=== PATIENT | female | born 1980 | race Caucasian/White ===

== ENCOUNTER 2017-09-13 11:00 | Emergency (ER) | payer OTHER ==
[~2017-09-13] VITALS: Ht 139.7 cm; Wt 71.7 kg
[~2017-09-13 11:00] MED LIST: POLYMYXIN B-TMP10 ML OD
[2017-09-13] MEDS ORDERED: MINOCYCLINE HC100 MG PO (11:40)
[2017-09-13] MEDS ORDERED: GABAPENTIN300 MG PO (11:40)
[2017-09-13] MEDS ORDERED: FLUOXETINE HCL40 MG (11:40)
[2017-09-13] MEDS ORDERED: DOK250 MG PO (11:41)
[2017-09-13] MEDS ORDERED: NORCO 5-325 TA1 EACH PO (13:04)
== END 2017-09-13 13:35 | disposition home or self-care (01) ==
LOC: ED 11:00
DX: S92.341A Displaced fracture of fourth metatarsal bone, right foot, initial encounter for closed fracture (principal); S92.331A Displaced fracture of third metatarsal bone, right foot, initial encounter for closed fracture; S92.324A Nondisplaced fracture of second metatarsal bone, right foot, initial encounter for closed fracture; F41.9 Anxiety disorder, unspecified; F32.9 Major depressive disorder, single episode, unspecified; Z88.0 Allergy status to penicillin; Z88.2 Allergy status to sulfonamides; Z88.1 Allergy status to other antibiotic agents; Z79.899 Other long term (current) drug therapy; W01.0XXA Fall on same level from slipping, tripping and stumbling without subsequent striking against object, initial encounter
CPT/HCPCS: 73630; 73700; 99284

== ENCOUNTER 2021-08-23 12:27 | Emergency (ER) | payer MEDICARE, OTHER ==
[~2021-08-23] VITALS: Ht 139.7 cm; Wt 93.1 kg
[~2021-08-23 12:27] MED LIST changes: +DOK250 MG PO; +FLUOXETINE HCL40 MG; +GABAPENTIN300 MG PO; +MINOCYCLINE HC100 MG PO; +NORCO 5-325 TA1 EACH PO
--- OUTSIDE RECORDS SUMMARY | 2021-08-23 12:30 | XMS ---
PreManage Notification: RAMBO MCCABE Security Skiver Machine Events No recent Security Events currently on file CRITERIA MET - [facility] - [facility] - Has Care Guidelines CARE PROVIDERS There are no care providers on record at this time. Guidelines Source: [employer] [facility] [place] Guidelines Date: 03/28/2020 Care Coordination: Member is currently enrolled in Mental Health Services through [employer]. If services are needed through [employer] please call: Dmitry [phone] [place]; [phone] Crisis [phone] E.D. VISIT COUNT (12 MO[address] 1 [facility] TOTAL 1 NOTE: Visits indicate total known visits. ED/UCC VISIT TRACKING (12 MO.) 08/23/2021 12:28 [facility] [place] TYPE: Emergency COMPLAINT: - LT EYE IRRITATION INPATIENT VISIT TRACKING (12 MO.) No inpatient visits to display in this time frame [email or web address]
[2021-08-23] MEDS ORDERED: DIVALPROEX SOD125 MG PO (13:27)
[2021-08-23] MEDS ORDERED: PRED FORTE5 ML OP (13:28)
[2021-08-23] MEDS ORDERED: PSEUDOEPHEDRINE30 MG PO (13:28)
[2021-08-23] MEDS ORDERED: PEG3350510 GM PO (13:28)
[2021-08-23] MEDS ORDERED: ACETIC ACID15 ML OTIC (13:28)
== END 2021-08-23 15:15 | disposition home or self-care (01) ==
LOC: ED 12:27
DX: H57.89 Other specified disorders of eye and adnexa (principal); Z88.0 Allergy status to penicillin; Z88.2 Allergy status to sulfonamides; Z88.1 Allergy status to other antibiotic agents; Z79.52 Long term (current) use of systemic steroids; Z79.899 Other long term (current) drug therapy
CPT/HCPCS: 99283

== ENCOUNTER 2021-08-31 20:57 | Emergency (ER) | payer MEDICARE, OTHER ==
[~2021-08-31] VITALS: Ht 139.7 cm; Wt 92.7 kg
[~2021-08-31 20:57] MED LIST changes: +ACETIC ACID15 ML OTIC; +DIVALPROEX SOD125 MG PO; +PEG3350510 GM PO; +PRED FORTE5 ML OP; +PSEUDOEPHEDRINE30 MG PO
--- OUTSIDE RECORDS SUMMARY | 2021-08-31 21:00 | XMS ---
PreManage Notification: RAMBO MCCABE Security Electrical Maintenance Mechanic Events No recent Security Events currently on file CRITERIA MET - [facility] - 2 Visits in 30 Days - PDMP - [facility] - Has Care Guidelines CARE PROVIDERS THU ELIZABETH [facility] 08/26/2021-Current PHONE: [phone] Guidelines Source: [facility] Guidelines Date: 08/29/2021 Other Information: Patient brought to ER by laborer hide house at [employer]. I advised that patient should have a follow up with either PCP or assessment manager and to be seen by walk in if possible for medical treatment. Ros at [facility] [place] stated patient had recent corneal repair, hence the need for an ED visit. She is scheduled to see Dr. Dillard, Tubular Products Fabricator, at [facility] for follow up, as well as with PCP Dr. Elizabeth (to be scheduled). Additional care guidelines exist for the following facilities: [facility] ( 03/28/2020 ) Care History Medical/Surgical 08/26/2021 [facility] - Patient is currently established with [facility]. If patient is seen in the ED during business hours. Please contact CHWs at [facility]. Care Recommendation: If this patient has had 5 or more Emergency Department visits in the last 12 months.\T\nbsp; Patient will require education on the scope and purpose of the ED as an acute care provider not a Primary Care Provider and should not be utilized for chronic conditions.\T\nbsp; These are guidelines and the provider should exercise clinical judgment when providing care. E.D. VISIT COUNT (12 MO.) 2 [facility] TOTAL 2 NOTE: Visits indicate total known visits. ED/UCC VISIT TRACKING (12 MO.) 08/31/2021 20:58 [facility] [place] TYPE: Emergency COMPLAINT: - BILATE LOWER LEG SWELLING 08/23/2021 12:[address] [facility] [place] TYPE: Emergency COMPLAINT: - LT EYE IRRITATION DIAGNOSES: - Ocular pain, left eye - Allergy status to penicillin - Allergy status to sulfonamides - Other oil heaterman (current) drug therapy - Allergy status to other antibiotic agents - snf (current) use of systemic steroids - Other specified disorders of eye and adnexa INPATIENT VISIT TRACKING (12 MO.) No inpatient visits to display in this time frame [email or web address]
[2021-08-31] MEDS ORDERED: DOXYCYCLINE HY100 MG PO (22:40)
[2021-08-31] MEDS ORDERED: MINOCYCLINE HC100 MG PO (22:46)
[2021-08-31] MEDS ORDERED: VITAMIN D325 MC2 PO (22:48)
[2021-08-31] MEDS ORDERED: ACETAMINOPHEN500 MG PO (22:51)
[2021-08-31] MEDS ORDERED: DIPHENHYDRAMINE25 M1 PO (22:51)
[2021-08-31] MEDS ORDERED: ROBITUSSIN COU237 M2 PO (22:53)
[2021-08-31] MEDS ORDERED: ADVIL200 MG NG (22:54)
== END 2021-08-31 23:13 | disposition home or self-care (01) ==
LOC: ED 20:57
DX: L03.116 Cellulitis of left lower limb (principal); L03.115 Cellulitis of right lower limb; Z88.0 Allergy status to penicillin; Z88.2 Allergy status to sulfonamides; Z88.1 Allergy status to other antibiotic agents; Z79.899 Other long term (current) drug therapy; Z79.52 Long term (current) use of systemic steroids
CPT/HCPCS: 80053; 85025; 99283

== ENCOUNTER 2022-01-10 05:45 | Day surgery (SDC) | payer MEDICARE, OTHER ==
[~2022-01-10 05:45] MED LIST changes: +ACETAMINOPHEN500 MG PO; +ADVIL200 MG NG; +DIPHENHYDRAMINE25 M1 PO; +DOXYCYCLINE HY100 MG PO; +ROBITUSSIN COU237 M2 PO; +VITAMIN D325 MC2 PO
--- NOTE | 2022-01-10 10:22 | NUR ---
01/10/22 1022 Felicity Cates 1017- PT ARRIVES TO PACU NONAROUSABLE TO NOXIOUS STIMULI WITH AN OPA IN PLACE. RESP EVEN AND UNLABORED. OXYGEN SAT HIGH 90'S TO 100% ON 10L VIA MASK. 1020- PT PUSHING OPA OUT WITH HER TONGUE. OPA REMOVED. OXYGEN SAT HIGH 90'S TO 100% ON 10L VIA MASK. 1021- OXYGEN TITRATED DOWN TO 6L VIA MASK.
--- NOTE | 2022-01-10 10:31 | NUR ---
PT TAKEN TO OR, CONNECTED WITH CG. SHE NEEDST LEAVE TO SPORTS EDITOR OTHER CLIENTS APPARENTLY, WILL RETURN. INSTRUCTED HER TO LEAVE CONTACT INFO WITH CONTROL CLERK SUBASSEMBLY-SHE ACKNOWLEDGED. WILL FOLLOW
[2022-01-10] MEDS ORDERED: HYDROCODON-ACE1 EA10 PO (10:44)
[2022-01-10] MEDS ORDERED: ACETAMINOPHEN500 MG PO (10:44)
--- NOTE | 2022-01-10 11:20 | NUR ---
PATIENT BACK TO ROOM FROM PACU. REPORT RECEIVED FROM XUAN GUERRA. PATIENT IS AWAKE AND WATCHING TV. NODS HER HEAD NO WHEN ASKED ABOUT PAIN. 4 LAP SITES WITH SMALL AMOUNT OF RED DRAINAGE. 35ML OF DRAINAGE REMOVED FROM GUILLERMINA DRAIN. ABD PAD UNDER DRAIN SATURGATED WITH DRAINAGE. REMOVED OLD DRESSING AND REPLACED WITH NEW ABD AND TAPE. CHUX'S PAD UNDER PATIENT SATURATED WITH DRAINAGE. NEW PAD PLACED. CAREGIVER AT BEDSIDE. ALAINA HUGGER TURNED ON. WATER AND PUDDING PROVIDED FOR PATIENT. CALL LIGHT WITHIN REACH.
--- NOTE | 2022-01-10 11:45 | NUR ---
PATIENT UP TO BATHROOM WITH RN AND CAREGIVER. GAIT UNSTEADY, TOLERATED WELL. PATIENT VOIDED 650ML. PATIENT BACK TO ROOM. CHANGED BED AND PUT NEW CHUX PAD DOWN. CHANGED PATIENT DRESSING AROUND AND UNDER THE GUILLERMINA DRAIN. NEW GOWN PROVIDED.
--- NOTE | 2022-01-10 12:10 | NUR ---
1210-PATIENT SHAKES HER HEAD YES TO PAIN AND POINTS AND RUBS HER RUQ. PAIN MEDICATION GIVEN PER EMAR. 1215-PATIENT IS RESTING IN BED WATCHING TV. RESP EVEN AND UNLABORED. 4 LAP SITES HAVE SMALL AMOUNT OF DRAINAGE. GUILLERMINA DRAIN WITH SMALL AMOUNT OF DRAINAGE. DRESSING CHANGES AROUND AND UNDER GUILLERMINA DRAIN ARE CLEAN DRY AND INTACT. CAREGIVER AT BEDSIDE AND CALL LIGHT WITHIN REACH.
--- NOTE | 2022-01-10 13:21 | NUR ---
1315-PATIENT ALSEEP. VSS. RESP EVEN AND UNLABORED. 4 LAP SITES WITH SMALL AMOUNT OF DRAINAGE. GUILLERMINA WITH SMALL AMOUNT OF RED DRAINAGE. GUILLERMINA DRESSINGS ARE CLEAN, DRY, AND INTACT. ABD PAD REMOVED UNDER GUILLERMINA DRAIN. CALL LIGHT WITHIN REACH.
--- NOTE | 2022-01-10 13:42 | NUR ---
1336-PATIENT NODS HER HEAD YES TO PAIN. SHE RUBS HER RUQ. PAIN MEDICATION GIVEN PER EMAR.
--- NOTE | 2022-01-10 14:45 | NUR ---
1445-DISCHARGE INSTRUCTION GIVEN TO PATIENT AND CAREGIVER. DEMONSTRATED HOW TO CARE FOR A GUILLERMINA DRAIN (HOW TO EMPTY DRAIN, STRIP TUBING, AND SUNCTION). CAREGIVER VERBALIZED UNDERSTANDING. PATIENT AMBULATES TO WHEELCHAIR AND PROVIDED RIDE TO CAREGIVER WAITING AT THE FRONT OF THE HOSPITAL.
--- NOTE | 2022-01-12 10:56 | OR ---
[facility] [address] [place], [place] [address] Signed DATE OF OPERATION: 01/10/2022 SURGEON: Tevin Ruiz MD PREOPERATIVE DIAGNOSES: 1. Symptomatic gallstones. 2. Severe mental deficiency (Prader-Willi syndrome). 3. Obesity. POSTOPERATIVE DIAGNOSES: 1. Symptomatic gallstones. 2. Severe Mental disability (Prader-Willi syndrome). 3. Obesity. PROCEDURE: Laparoscopic cholecystectomy with attempted but failed intraoperative cholangiogram. ANESTHESIA: General endotracheal, Ángela Jac, GROUP THERAPIST and local 10 mL of 0.25% Marcaine with epinephrine. INDICATION: This 41-year-old obese woman is a patient of Sasha Elizabeth MD. She has Prader-Willi syndrome and mental deficiencies as well as obesity. She was noted to have elevated liver enzymes and additional evaluation include a gallbladder ultrasound which showed large gallstones of the gallbladder. She is poorly communicative as to symptoms, but is perceived to have right upper abdominal pain by her caregivers. She is admitted at this time to undergo cholecystectomy preferred by a laparoscopic approach. She understands the risk of bleeding, infection, bile duct injury, need for open procedure and other unforeseen complications. Though the patient does not understand these risks, the caregivers do. On that basis, she is to proceed with operation. FINDINGS: She has considered amount of intraabdominal fat with a fair amount of fat surrounding the gallbladder and particularly the infundibulum. The cystic artery was initially identified as the cystic duct and subsequently it was noted that the cystic duct had been divided in the course of initial fatty dissection. It was ultimately re-identified and found to be healthy and was Electronically Signed By: TEVIN RUIZ MD 01/12/22 1056 PATIENT NAME: RAMBO MCCABE OPERATIVE REPORT DATE OF : 76 REPORT #: [id number] PHYSICIAN: TEVIN RUIZ MD PCP: SASHA ELIZABETH MD REPORT IS CONFIDENTIAL AND NOT TO BE RELEASED WITHOUT AUTHORIZATION [facility] [address] [place], [place] [address] Signed ultimately secured with two clips. The clips were applied at the junction of the cystic duct and common bile duct based on anatomy. An attempt at cholangiogram was unsuccessful. The gallbladder once excised showed rather large gallstones, no sign of neoplasm. The liver appeared normal. There were no other findings of concern. A drain was left in place due to the issues related to initial fatty dissection and despite no known bile leak at the conclusion of the procedure. DESCRIPTION OF PROCEDURE: The patient was brought to the operating room, and given a general endotracheal anesthetic. Her airway was considered to be "anterior" and was somewhat difficult for intubation. Preoperative antibiotic clindamycin had been given. Sequential compression device stockings were used and heparin subcutaneously administered. The abdomen was prepared with a chlorhexidine solution and draped sterilely. An infraumbilical incision was made and using an open Thania cannula technique, the abdomen was entered and pneumoperitoneum achieved to a level of 14 mmHg of carbon dioxide gas. Intra-abdominal inspection showed a fair amount of fat, including the omentum. The liver did not appear fatty infiltrated, however. Three additional trocars were placed in usual configuration in the subxiphoid, right midclavicular, and right anterior axillary line. The gallbladder was chronically inflamed, and was elevated cephalad. The infundibulum was quite markedly infiltrated with fat. Dissection was begun high in the gallbladder in the region of the infundibulum and dissection was undertaken with blunt and electrocautery dissection. Several small blood vessels were secured with electrocautery. A structure that was tubular and highly suggestive of cystic duct was isolated and elevated and a clip applied proximally near the gallbladder and a transverse incision made. This had prompt arterial bleeding (thus identifying a dominant cystic arterial branch rather than the cystic duct after all. The artery was then promptly controlled and doubly clipped. Dissection in the region of the infundibulum elsewhere did not clearly identify the cystic duct and therefore obviously it had been dissected free and likely divided in the course of dissection initially of the very fatty infundibular area. With meticulous care, the fatty tissue of the isadora hepatis area was dissected free. As the infundibulum was somewhat obscuring things, a separate 5 mm trocar was placed and an Endoloop placed around the infundibulum of the gallbladder, retracting it out of the way. Careful and deliberate dissection was undertaken ultimately identifying the cystic duct remnant which had indeed been divided. This was dissected free from the fatty tissue and was found to be reasonably generous in size and without problem. A clip was applied to the end of this and it was elevated and a transverse choledochotomy made in the cystic duct. Attempts were made to do a cholangiogram through this, but the catheter could never intubate the cystic duct itself. By this point, the cystic duct was somewhat diminished in its size and it became likely that the cystic duct remnant Electronically Signed By: TEVIN RUIZ MD 01/12/22 1056 PATIENT NAME: RAMBO MCCABE OPERATIVE REPORT DATE OF : 76 REPORT #: [id number] PHYSICIAN: TEVIN RUIZ MD PCP: SASHA ELIZABETH MD REPORT IS CONFIDENTIAL AND NOT TO BE RELEASED WITHOUT AUTHORIZATION [facility] [address] [place], [place] [address] Signed was not excessively long and extreme care was taken in securing clips that appeared to be on the cystic duct only and not compromised in the common bile duct itself which likely was identified. Photographs were taken. Two such clips were applied. Irrigation was undertaken. There was no sign of bile leak or other problem. The gallbladder was then dissected free in a retrograde fashion. Entry to the gallbladder did allow for some bilious fluid leakage, which was suctioned free. There was no spillage of stones. The gallbladder once excised was placed in an endobag and extracted through the infraumbilical port site. Reinspection of subhepatic space showed no sign of obvious bile leak. Minimal amounts of bleeding were secured with electrocautery. Ultimately, Tisseel was applied (fibrin glue) to the area. A 7 mm flat Darren drain was placed in the subhepatic space based on the extent of dissection and mindful of the clip position on the cystic duct remnant. It was secured to the skin with nylon suture. The trocars were removed under direct visualization showing no sign of bleeding. The infraumbilical fascial incision was reapproximated with interrupted 0 Vicryl suture and a running 0 PDS suture as well. The skin was then closed with interrupted 3-0 Vicryl, Steri-Strips were applied. The patient had some bronchospasm or laryngospasm upon extubation, which was appropriately managed without problem. She was transferred to the recovery room in good condition. The operation was rather prolonged, complicated, and difficult related to anatomic factors lasting three times longer than usual. MD SCOTTY Simmons/NAOMI /[id number] cc: Sasha Elizabeth MD Copies: ~ Electronically Signed By: TEVIN RUIZ MD 01/12/22 1056 PATIENT NAME: ELIOTRAMBO M OPERATIVE REPORT DATE OF : 76 REPORT #: [id number] PHYSICIAN: TEVIN RUIZ MD PCP: SASHA ELIZABETH MD REPORT IS CONFIDENTIAL AND NOT TO BE RELEASED WITHOUT AUTHORIZATION
--- NOTE | 2022-01-13 12:50 | PATH ---
[facility] [address] [facility] [place], [place] [address] Signed SPECIMEN(S): A GALLBLADDER WITH STONES SPECIMEN SOURCE: A. GALLBLADDER WITH STONES CLINICAL HISTORY: Chronic cholecystitis. FINAL PATHOLOGIC DIAGNOSIS: Gallbladder, cholecystectomy: - Chronic cholecystitis. - Cholelithiasis. NAL:cml:C2NR MICROSCOPIC EXAMINATION: Histologic sections of all submitted blocks are examined by light microscopy. These findings, together with the gross examination, support the pathologic diagnosis. GROSS DESCRIPTION: The specimen, labeled "JS, gallbladder," is received in formalin and consists of Specimen: Previously opened gallbladder. Dimensions: 7.2 cm in length and 4.2 cm in inner circumference. Serosa: Yellow-diehl and smooth. Cystic Duct: unobstructed. Calculi: 4 black, faceted gallstones within the container that measure 1.1 cm in greatest dimension each. Mucosa: Marquette-diehl and velvety. Wall thickness: 0.5 cm. Lymph node: No pericystic lymph nodes are grossly identified. Additional: None. Glass Tinter sections are submitted in cassette (A1). JS (under the direct supervision of a pathologist) The Gross Description was prepared using a voice recognition system. The report was reviewed for accuracy; however, sound-alike word errors, addition and/or deletions may occur. If there is any question about this report, please contact Client Services. PERFORMING LABORATORY: The technical component was performed by [employer], [facility] [place] Estella Hester, PATIENT NAME: ELIOTRAMBO PATHOLOGY DATE OF : 76 REPORT #: [id number] PHYSICIAN: IRASEMA MCDONALD PCP: THU GARCIA MD REPORT IS CONFIDENTIAL AND NOT TO BE RELEASED WITHOUT AUTHORIZATION [facility] [address] [place], [place] [address] [place] [address] (Director Perioperative: Naty Hernandez MD; CLIA# [id number]). [facility] [address] [address] (CLIA# [id number]). Diagnostician: Nanette Bellamy MD Pathologist Electronically Signed 01/13/2022 Copies: ~ PATIENT NAME: ELIOTRAMBO Cooper PATHOLOGY DATE OF : [birth year] REPORT #: [id number] PHYSICIAN: IRASEMA MCDONALD PCP: THU GARCIA MD REPORT IS CONFIDENTIAL AND NOT TO BE RELEASED WITHOUT AUTHORIZATION
== END 2022-01-10 14:48 | disposition home or self-care (01) ==
LOC: DS 05:45
PROVIDERS: ATTEND Surgery
PROC: BF12YZZ Fluoroscopy of Gallbladder using Other Contrast (ICD-10-PCS; 2022-01-10)
PROC: 0FT44ZZ Resection of Gallbladder, Percutaneous Endoscopic Approach (ICD-10-PCS; principal; 2022-01-10 06:45)
DX: K80.10 Calculus of gallbladder with chronic cholecystitis without obstruction (principal); Q87.11 Prader-Willi syndrome
CPT/HCPCS: J0330; J1100; J1644; J1885; J2001; J2250; J2405; J2704; J7121

== ENCOUNTER 2022-08-21 11:29 | Emergency (ER) | payer MEDICARE, OTHER ==
[~2022-08-21] VITALS: Ht 139.7 cm; Wt 93.5 kg
[~2022-08-21 11:29] MED LIST changes: +HYDROCODON-ACE1 EA10 PO
--- OUTSIDE RECORDS SUMMARY | 2022-08-21 11:32 | XMS ---
PreManage Notification: RAMBO MCCABE Security Decorating And Assembly Supervisor Events No recent Security Events currently on file CRITERIA MET - [facility] - Has Care Guidelines - [facility] RADHA [facility] 08/26/2021-Current PHONE: Unknown Guidelines Source: [facility] Guidelines Date: 08/29/2021 Other Information: Patient brought to ER by dope dry house operator at [employer]. I advised that patient should have a follow up with either PCP or student and to be seen by walk in if possible for medical treatment. Ros at [employer] stated patient had recent corneal repair, hence the need for an ED visit. She is scheduled to see Dr. Dillard, Forest Economist, at [facility] for follow up, as well as with PCP Dr. Elizabeth (to be scheduled). Additional care guidelines exist for the following facilities: [facility] ( 03/28/2020 ) Care History Medical/Surgical 09/02/2021 [facility] Patient has follow up visit with Dr. Elizabeth on 09/02/2021. 08/26/2021 [facility] - Patient is currently established with [facility]. If patient is seen in the ED during business hours. Please contact CHWs at [facility]. Care Recommendation: If this patient has had [...] providing care. E.D. VISIT COUNT (12 MO.) [address] [facility] TOTAL 3 NOTE: Visits indicate total known visits. ED/UCC VISIT TRACKING (12 MO.) 08/21/2022 11:30 [facility] [place] TYPE: Emergency COMPLAINT: - SYNCOPE 08/31/2021 20:58 [facility] [place] TYPE: Emergency COMPLAINT: - BILATE LOWER LEG SWELLING DIAGNOSES: - Allergy status to sulfonamides - Localized swelling, mass and lump, lower limb, bilateral - Other manager technical training (current) drug therapy - [facility] (current) use of systemic steroids - Cellulitis of right lower limb - Allergy status to other antibiotic agents - Cellulitis of left lower limb - Allergy status to penicillin 08/23/2021 12:28 [facility] [place] TYPE: Emergency COMPLAINT: - LT EYE IRRITATION DIAGNOSES: - Ocular pain, left eye - [facility] (current) use of systemic steroids - Other manager technical training (current) drug therapy - Allergy status to penicillin - Other specified disorders of eye and adnexa - Allergy status to other antibiotic agents - Allergy status to sulfonamides INPATIENT VISIT TRACKING (12 MO.) No inpatient visits to display in this time frame [email or web address]
[2022-08-21] MEDS ORDERED: CEFDINIR300 MG PO (18:03)
--- NOTE | 2022-08-22 | EKG ---
[facility] [address] [facility] [place], [place] [address] Signed Sinus rhythm with short MT Otherwise normal ECG When compared with ECG of 10-DEC-2021 09:36, No significant change was found Confirmed by STANISLAW HO MD ([id number]) on 08/22/2022 12:00:22 AM Electronically Signed By: STANISLAW HO MD 08/22/22 0000 PATIENT NAME: RAMBO MCCABE Electrocardiogram DATE OF : 76 PHYSICIAN: STANISLAW HO MD REPORT #: [id number] REPORT IS CONFIDENTIAL AND NOT TO BE RELEASED WITHOUT AUTHORIZATION
== END 2022-08-21 18:37 | disposition home or self-care (01) ==
LOC: ED 11:29
DX: R55 Syncope and collapse (principal); N39.0 Urinary tract infection, site not specified; Z88.0 Allergy status to penicillin; Z88.2 Allergy status to sulfonamides; Z88.1 Allergy status to other antibiotic agents
CPT/HCPCS: 36415; 80053; 81001; 85025; 87088; 93005; 93010; 96365; 99284-25; J0696

== ENCOUNTER 2022-12-26 11:16 | Emergency (ER) | payer MEDICARE, OTHER ==
[~2022-12-26] VITALS: Ht 139.7 cm; Wt 91.9 kg
[~2022-12-26 11:16] MED LIST changes: +CEFDINIR300 MG PO
--- OUTSIDE RECORDS SUMMARY | 2022-12-26 11:22 | XMS ---
PreManage Notification: RAMBO MCCABE Security Laser Beam Trim Operator Events No recent Security Events currently on file CRITERIA MET - [facility] - [facility] - Has Care Guidelines CARE PROVIDERS RADHA [facility] 08/26/2021-Current PHONE: Unknown Guidelines Source: [facility] Guidelines Date: 08/29/2021 Other Information: Patient brought to ER by dry house tender at [employer]. I advised that patient should have a follow up with either PCP or cylinder devalver and to be seen by walk in if possible for medical treatment. Ros at [employer] stated patient had recent corneal repair, hence the need for an ED visit. She is scheduled to see Dr. Dillard, Outreach Team Member, at [facility] for follow up, as well as with PCP Dr. Elizabeth (to be scheduled). Additional care guidelines exist for the following facilities: [facility] ( 03/28/2020 ) Care History Medical/Surgical 09/02/2021 [facility] Patient has follow up visit with Dr. Elizabeth on 09/02/2021. 08/26/2021 [facility] - Patient is currently established with [facility]. If patient is seen in the ED during business hours. Please contact CHWs at [facility]. Care Recommendation: If this patient has had [...] known visits. ED/UCC VISIT TRACKING (12 MO.) 12/26/2022 11:19 [facility] [place] TYPE: Emergency COMPLAINT: - R LEG SWOLLEN 08/21/2022 11:30 [facility] TYPE: Emergency COMPLAINT: - SYNCOPE DIAGNOSES: - Allergy status to other antibiotic agents - Urinary tract infection, site not specified - Syncope and collapse - Allergy status to sulfonamides - Allergy status to penicillin INPATIENT VISIT TRACKING (12 MO.) No inpatient visits to display in this time frame [id number]
[2022-12-26] MEDS ORDERED: ALENDRONATE SOD70 MG PO (13:20)
[2022-12-26] MEDS ORDERED: K-TAB ER20 MEQ PO (13:57)
[2022-12-26] MEDS ORDERED: LASIX20 MG PO (13:57)
== END 2022-12-26 14:10 | disposition home or self-care (01) ==
LOC: ED 11:16
DX: R60.0 Localized edema (principal); Z88.0 Allergy status to penicillin; Z88.2 Allergy status to sulfonamides; Z88.1 Allergy status to other antibiotic agents; Z79.899 Other long term (current) drug therapy
CPT/HCPCS: 99283

== ENCOUNTER 2023-01-22 20:16 | Inpatient (IN) | payer MEDICARE, OTHER ==
[~2023-01-22] VITALS: Ht 139.7 cm; Wt 91.1 kg
[~2023-01-22 20:16] MED LIST changes: -ADVIL200 MG NG; +ADVIL200 MG PO; +ALENDRONATE SOD70 MG PO; -FLUOXETINE HCL40 MG; +FLUOXETINE HCL40 MG PO; +K-TAB ER20 MEQ PO; +LASIX20 MG PO; -PRED FORTE5 ML OP; +PRED FORTE5 ML OU
--- OUTSIDE RECORDS SUMMARY | 2023-01-22 20:18 | XMS ---
PreManage Notification: RAMBO MCCABE Security Drum Tester Events No recent Security Events currently on file CRITERIA MET - PDMP - [facility] - 2 Visits in 30 Days - [facility] - Has Care Guidelines CARE PROVIDERS -, [place]- Dentist: Jewel Bearing [facility] PHONE: [phone] [facility]Current PHONE: Unknown Guidelines Source: [facility] Guidelines Date: 08/29/2021 Other Information: Patient brought to ER by housekeeping laundry worker at [employer]. I advised that patient should have a follow up with either PCP or electronics test engineer and to be seen by walk in if possible for medical treatment. Ros at [employer] stated patient had recent corneal repair, hence the need for an ED visit. She is scheduled to see Dr. Dillard, Turn Operator, at [facility] for follow up, as well as with PCP Dr. Elizabeth (to be scheduled). Additional care guidelines exist for the following facilities: [facility] ( 03/28/2020 ) Care History Medical/Surgical 09/02/2021 [facility] Patient has follow up visit with Dr. Elizabeth on 09/02/2021. 08/26/2021 [facility] - Patient is currently established with [facility]. If patient is seen in the ED during business hours. Please contact CHWs at [facility]. Care Recommendation: If this patient has [...] care. E.D. VISIT COUNT (12 MO.) 3 [facility]. TOTAL 3 NOTE: Visits indicate total known visits. ED/UCC VISIT TRACKING (12 MO.) 01/22/2023 20:16 [facility] [place] TYPE: Emergency COMPLAINT: - COLD SYMPTOMS 12/26/2022 11:19 [facility] [place] TYPE: Emergency COMPLAINT: - R LEG SWOLLEN/ NO INJ DIAGNOSES: - Allergy status to sulfonamides - Other skilled nursing (current) drug therapy - Localized edema - Localized swelling, mass and lump, right lower limb - Allergy status to other antibiotic agents - Allergy status to penicillin 08/21/2022 11:30 [facility] [place] TYPE: Emergency COMPLAINT: - SYNCOPE DIAGNOSES: - Syncope and collapse - Allergy status to sulfonamides - Allergy status to penicillin - Allergy status to other antibiotic agents - Urinary tract infection, site not specified INPATIENT VISIT TRACKING (12 MO.) No inpatient visits to display in this time frame [email or web address]
[2023-01-23] MEDS ORDERED: CALCIUM CARBON600 MG PO (11:05)
[2023-01-23] MEDS ORDERED: DIVALPROEX SOD250 MG PO (11:09)
[2023-01-23] MEDS ORDERED: DIVALPROEX SOD500 MG PO (11:09)
[2023-01-23] MEDS ORDERED: FUROSEMIDE20 MG PO (11:11)
[2023-01-23] MEDS ORDERED: POTASSIUM CHLO20 ME2 PO (11:14)
[2023-01-23] MEDS ORDERED: BP WASH TOP (11:16)
[2023-01-23] MEDS ORDERED: PREVIDENT473 ML MM (11:24)
[2023-01-23] MEDS ORDERED: REFRESH OPTIVE1 EACH OU (11:25)
[2023-01-23] MEDS ORDERED: ROBAFEN DM COU118 M1 PO (11:28)
[2023-01-23] MEDS ORDERED: SUDOGEST30 MG PO (11:29)
[2023-01-23] MEDS ORDERED: ACETIC ACID15 ML AS (11:34)
[2023-01-23] MEDS ORDERED: ALOE TOP (11:35)
[2023-01-23] MEDS ORDERED: CAMPHO PHENIQUE TOP (11:40)
[2023-01-23] MEDS ORDERED: ARTIFICIAL TEAR15 M6 OU (11:40)
[2023-01-23] MEDS ORDERED: CLINDAGEL75 ML TOP (11:42)
[2023-01-23] MEDS ORDERED: HYDROGEN PERO3840 ML TOP (11:42)
[2023-01-23] MEDS ORDERED: TRIPLE ANTIBI28.4 G3 TOP (11:43)
--- NOTE | 2023-01-24 13:29 | EKG ---
[facility] [address] [facility] [place] [address] Signed Normal sinus rhythm Normal ECG When compared with ECG of 21-AUG-2022 11:49, Nonspecific T wave abnormality no longer evident in Inferior leads QT has lengthened Confirmed by HOLLY ALVES MD ([id number]) on 01/24/2023 1:29:31 PM Electronically Signed By: HOLLY ALVES MD 01/24/23 1329 PATIENT NAME: RAMBO MCCABE Electrocardiogram DATE OF : 76 PHYSICIAN: HOLLY ALVES MD REPORT #: [id number] REPORT IS CONFIDENTIAL AND NOT TO BE RELEASED WITHOUT AUTHORIZATION
[2023-02-05] MEDS ORDERED: FUROSEMIDE20 MG PO (11:38)
[2023-02-05] MEDS ORDERED: POTASSIUM CHLO10 ME1 PO (11:39)
[2023-02-05] MEDS ORDERED: BISACODYL10 MG PR (11:40)
[2023-02-05] MEDS ORDERED: MILK OF MA400 MG/5 M PO (11:40)
[2023-02-05] MEDS ORDERED: METFORMIN HCL500 MG PO (11:41)
== END 2023-02-05 12:00 | disposition home or self-care (01) | DRG 177 ==
LOC: ED 20:16 → MS 23:51 → CCU 23:51 → MS 01-23 13:50 → CCU 01-29 13:53 → MS 02-04 17:07
PROVIDERS: ADMIT Internal Medicine; ATTEND Internal Medicine
PROC: 4A033R1 Measurement of Arterial Saturation, Peripheral, Percutaneous Approach (ICD-10-PCS; principal; 2023-01-22)
PROC: 5A09357 Assistance with Respiratory Ventilation, Less than 24 Consecutive Hours, Continuous Positive Airway Pressure (ICD-10-PCS; 2023-02-03)
DX: J69.0 Pneumonitis due to inhalation of food and vomit (principal); I50.33 Acute on chronic diastolic (congestive) heart failure; J96.01 Acute respiratory failure with hypoxia; E87.1 Hypo-osmolality and hyponatremia; Q87.11 Prader-Willi syndrome; J15.6 Pneumonia due to other Gram-negative bacteria; Z66 Do not resuscitate; Z51.5 Encounter for palliative care; Z20.822 Contact with and (suspected) exposure to COVID-19; E11.9 Type 2 diabetes mellitus without complications; F41.9 Anxiety disorder, unspecified; F32.A Depression, unspecified; Z90.49 Acquired absence of other specified parts of digestive tract; Z98.890 Other specified postprocedural states; Z88.0 Allergy status to penicillin; Z88.1 Allergy status to other antibiotic agents; Z88.2 Allergy status to sulfonamides; Z79.899 Other long term (current) drug therapy
CPT/HCPCS: 36415; 36600; 71045; 71260; 80048; 80053; 80202; 82803; 83036; 83605; 83880; 84484; 85025; 85379; 86140; 87040; 87070; 87077; 87205; 87449; 87502; 87899; 92526; 92610; 93005; 93010; 93306; 94640; 94660; 94667; 94668; 94760; 94799; 97110; 97116; 97162; 97167; 97530; 97535; A9270; C9803; J0696; J1650; J1815; J1940; J1956; J2270; J2920; J2930; J3370; J3490; J7030; J7060; Q9967; U0003

== ENCOUNTER 2023-06-18 13:31 | Emergency (ER) | payer MEDICARE, OTHER ==
[~2023-06-18] VITALS: Ht 139.7 cm; Wt 91.0 kg
[~2023-06-18 13:31] MED LIST changes: +ACETIC ACID15 ML AS; +ALOE TOP; +ARTIFICIAL TEAR15 M6 OU; +BISACODYL10 MG PR; +BP WASH TOP; +CALCIUM CARBON600 MG PO; +CAMPHO PHENIQUE TOP; +CLINDAGEL75 ML TOP; +DIVALPROEX SOD250 MG PO; +DIVALPROEX SOD500 MG PO; +FUROSEMIDE20 MG PO; +HYDROGEN PERO3840 ML TOP; +METFORMIN HCL500 MG PO; +MILK OF MA400 MG/5 M PO; +POTASSIUM CHLO10 ME1 PO; +POTASSIUM CHLO20 ME2 PO; +PREVIDENT473 ML MM; +REFRESH OPTIVE1 EACH OU; +ROBAFEN DM COU118 M1 PO; +SUDOGEST30 MG PO; +TRIPLE ANTIBI28.4 G3 TOP
--- OUTSIDE RECORDS SUMMARY | 2023-06-18 13:36 | XMS ---
PreManage Notification: RAMBO MCCABE Security [employer]cre[employer] Operator Events No recent Security Events currently on file CRITERIA MET - PDMP CARE PROVIDERS -[place]- Dentist: Scow Captain [facility] PHONE: [phone] DONTAE JOYA Emergency Medicine Current PHONE: [phone] THU GARCIA Family Medicine 08/26/2021-Current PHONE: Unknown Guidelines Source: [facility] Guidelines Date: 08/29/2021 Other Information: Patient brought to ER by housekeeper manager at [email or web address] I advised that patient should have a follow up with either PCP or turf keeper and to be seen by walk in if possible for medical treatment. Ros at [facility] stated patient had recent corneal repair, hence the need for an ED visit. She is scheduled to see Dr. Dillard, Alignment Mechanic, at [facility] for follow up, as well as with PCP Dr. Garcia (to be scheduled). Additional care guidelines exist for the following facilities: [facility] ( 03/28/2020 ) Care History Medical/Surgical 09/02/2021 [facility] Patient has follow up visit with Dr. Garcia on 09/02/2021. 08/26/2021 [facility] - Patient is currently established with [facility]. If patient is seen in the ED during business hours. Please contact CHWs at [facility]. Care Recommendation: If this patient [...] providing care. E.D. VISIT COUNT (12 MO.) 5 [facility] TOTAL 5 NOTE: Visits indicate total known visits. ED/UCC VISIT TRACKING (12 MO.) 06/18/2023 13:33 [facility] [place] TYPE: Emergency COMPLAINT: - INCONTINENCE, NO APPETITE, BEHAVIORAL 03/13/2023 10:36 [facility] [place] TYPE: Emergency COMPLAINT: - FEVER, CHILLS, FATIGUE DIAGNOSES: - Allergy status to penicillin - Allergy status to sulfonamides - Contact with and (suspected) exposure to COVID-19 - Other fatigue - Other terminal manager (current) drug therapy 01/22/2023 20:16 [facility] [place] TYPE: Emergency COMPLAINT: - COLD SYMPTOMS 12/26/2022 11:19 [facility] TYPE: Emergency COMPLAINT: - R LEG SWOLLEN/ NO INJ DIAGNOSES: - Allergy status to other antibiotic agents - Allergy status to penicillin - Allergy status to sulfonamides - Localized edema - Localized swelling, mass and lump, right lower limb - Other residential (current) drug therapy 08/21/2022 11:30 [facility] TYPE: Emergency COMPLAINT: - SYNCOPE DIAGNOSES: - Allergy status to other antibiotic agents - Allergy status to penicillin - Allergy status to sulfonamides - Syncope and collapse - Urinary tract infection, site not specified INPATIENT VISIT TRACKING (12 MO.) 01/22/2023 23:51 [facility] [place] TYPE: Medical Surgical COMPLAINT: - PNEUMONIA DIAGNOSES: - Acquired absence of other specified parts of digestive tract - Acquired absence of other specified parts of digestive tract - Acute on chronic diastolic (congestive) heart failure - Acute on chronic diastolic (congestive) heart failure - Acute respiratory failure with hypoxia - Acute respiratory failure with hypoxia - Allergy status to other antibiotic agents - Allergy status to other antibiotic agents - Allergy status to penicillin - Allergy status to penicillin - Allergy status to sulfonamides - Allergy status to sulfonamides - Anxiety disorder, unspecified - Anxiety disorder, unspecified - Contact with and (suspected) exposure to COVID-19 - Contact with and (suspected) exposure to COVID-19 - Depression, unspecified - Depression, unspecified - Do not resuscitate - Do not resuscitate - Encounter for palliative care - Encounter for palliative care - Hypo-osmolality and hyponatremia - Hypo-osmolality and hyponatremia - Other terminal manager (current) drug therapy - Other residential (current) drug therapy - Other specified postprocedural states - Other specified postprocedural states - Pneumonia due to other Gram-negative bacteria - Pneumonia due to other Gram-negative bacteria - Pneumonia, unspecified organism - Pneumonitis due to inhalation of food and vomit - Pneumonitis due to inhalation of food and vomit - Prader-Willi syndrome - Prader-Willi syndrome - Type 2 diabetes mellitus without complications - Type 2 diabetes mellitus without complications [email or web address]
[2023-06-18] MEDS ORDERED: JARDIANCE25 MG PO (14:06)
[2023-06-18] MEDS ORDERED: POTASSIUM CHLO20 ME2 PO (14:07)
[2023-06-18] MEDS ORDERED: PANTOPRAZOLE SO40 MG PO (16:40)
[2023-06-18] MEDS ORDERED: REGLAN5 MG PO (16:40)
[2023-06-18 16:50] VITALS: BP 146/107
== END 2023-06-18 16:51 | disposition home or self-care (01) ==
LOC: ED 13:31
DX: K56.7 Ileus, unspecified (principal); R63.0 Anorexia; E11.9 Type 2 diabetes mellitus without complications; Z88.0 Allergy status to penicillin; Z88.2 Allergy status to sulfonamides; Z88.1 Allergy status to other antibiotic agents; Z79.52 Long term (current) use of systemic steroids; Z79.84 Long term (current) use of oral hypoglycemic drugs
CPT/HCPCS: 36415; 74176; 80053; 80164; 81003; 83690; 84703; 85025; 96374; 96375; 99284 25; C9113; J2405; J2765; J7030

== ENCOUNTER 2023-08-03 16:59 | Emergency (ER) | payer MEDICARE, OTHER ==
[~2023-08-03] VITALS: Ht 139.7 cm; Wt 91.0 kg
[~2023-08-03 16:59] MED LIST changes: +JARDIANCE25 MG PO; +PANTOPRAZOLE SO40 MG PO; +REGLAN5 MG PO
--- OUTSIDE RECORDS SUMMARY | 2023-08-03 17:02 | XMS ---
PreManage Notification: RAMBO MCCABE Security Remote [employer] Developer Events No recent Security Events currently on file CRITERIA MET - PDM CARE PROVIDERS THU GARCIA Family Medicine 08/26/2021-Current PHONE: Unknown -, [place]- Dentist: [employer] Nozzle Operator [facility] PHONE: [phone] DONTAE JOYA Emergency Medicine Current PHONE: [phone] Guidelines Source: [facility] Guidelines Date: 08/29/2021 Other Information: Patient brought to ER by warehouse associate at [employer]. I advised that patient should have a follow up with either PCP or hide dropper and to be seen by walk in if possible for medical treatment. Ros at [facility] stated patient had recent corneal repair, hence the need for an ED visit. She is scheduled to see Dr. Dillard, Coding Advisor, at [facility] for follow up, as well as with PCP Dr. Garcia (to be scheduled). Additional care guidelines exist for the following facilities: [facility] ( 03/28/2020 ) Care History Medical/Surgical 09/02/2021 [facility] Patient has follow up visit with Dr. Garcia on 09/02/2021. 08/26/2021 [facility] - Patient is currently established with [facility]. If patient is seen in the ED during business hours. Please contact CHWs at [facility]. Care Recommendation: If this patient [...] providing care. E.D. VISIT COUNT (12 MO.) [address] [place] TOTAL 7 NOTE: Visits indicate total known visits. ED/UCC VISIT TRACKING (12 MO.) 08/03/2023 16:59 [facility] TYPE: Emergency COMPLAINT: - EYE PROBLEM 06/19/2023 10:47 [facility] [place] TYPE: Emergency DIAGNOSES: - Abnormal findings on diagnostic imaging of other parts of digestive tract - Anorexia - Nausea with vomiting, unspecified - Other diseases of stomach and duodenum - Abdominal Pain - ams - Decreased Appetite - Fatigue 06/18/2023 13:33 [facility] TYPE: Emergency COMPLAINT: - INCONTINENCE, NO APPETITE, BEHAVIORAL DIAGNOSES: - Allergy status to other antibiotic agents - Allergy status to penicillin - Allergy status to sulfonamides - Anorexia - Ileus, unspecified - toolmaker grade three (current) use of oral hypoglycemic drugs - MCFP (current) use of systemic steroids - Type 2 diabetes mellitus without complications - Unspecified urinary incontinence 03/13/2023 10:36 [facility] TYPE: Emergency COMPLAINT: - FEVER, CHILLS, FATIGUE DIAGNOSES: - Allergy status to penicillin - Allergy status to sulfonamides - Contact with and (suspected) exposure to COVID-19 - Other fatigue - Other fdc (current) drug therapy 01/22/2023 20:16 [facility] TYPE: Emergency COMPLAINT: - COLD SYMPTOMS 12/26/2022 11:19 [facility] TYPE: Emergency COMPLAINT: - R LEG SWOLLEN/ NO INJ DIAGNOSES: - Allergy status to other antibiotic agents - Allergy status to penicillin - Allergy status to sulfonamides - Localized edema - Localized swelling, mass and lump, right lower limb - Other fdc (current) drug therapy 08/21/2022 11:30 [facility] TYPE: Emergency COMPLAINT: - SYNCOPE DIAGNOSES: - Allergy status to other antibiotic agents - Allergy status to penicillin - Allergy status to sulfonamides - Syncope and collapse - Urinary tract infection, site not specified INPATIENT VISIT TRACKING (12 MO.) [facility] DIAGNOSES: - Abnormal findings on diagnostic imaging of other parts of digestive tract - Anorexia - Body mass index [BMI] 38.0-38.9, adult - Functional dyspepsia - Gastroparesis - Nausea with vomiting, unspecified - Obesity, unspecified - Other diseases of stomach and duodenum - Prader-Willi syndrome 01/22/2023 23:51 [facility] [place] TYPE: Medical Surgical COMPLAINT: - PNEUMONIA [...] hyponatremia - Hypo-osmolality and hyponatremia - Other electrician front (current) drug therapy - Other electrician front (current) drug therapy - Other specified postprocedural [...] - Type 2 diabetes mellitus without complications [email or web address]
[2023-08-03] MEDS ORDERED: ALENDRONATE SOD70 MG PO (19:53)
[2023-08-03] MEDS ORDERED: JARDIANCE25 MG PO (19:56)
[2023-08-03] MEDS ORDERED: BETIMOL5 M2 OP (20:08)
[2023-08-03 20:16] VITALS: BP 146/96
== END 2023-08-03 20:17 | disposition home or self-care (01) ==
LOC: ED 16:59
DX: H40.6 Glaucoma secondary to drugs (principal); T49.5X5A Adverse effect of ophthalmological drugs and preparations, initial encounter; Z88.0 Allergy status to penicillin; Z88.2 Allergy status to sulfonamides; Z88.1 Allergy status to other antibiotic agents; Z79.899 Other long term (current) drug therapy

== ENCOUNTER 2025-04-02 17:57 | Emergency (ER) | payer MEDICARE, OTHER ==
[~2025-04-02] VITALS: Ht 139.7 cm; Wt 78.5 kg
[~2025-04-02 17:57] MED LIST changes: +BETIMOL5 M2 OP
[2025-04-02] MEDS ORDERED: METFORMIN HCL500 M2 PO (18:21)
[2025-04-02] MEDS ORDERED: PRAVASTATIN SOD40 MG PO (18:21)
[2025-04-02 19:19] LABS: BILIRUBIN, URINE NEGATIVE (negative); BLOOD/HGB, URINE NEGATIVE (Negative); KETONE, URINE SMALL (Negative); LEUK ESTERASE, URINE NEGATIVE (negative); NITRITE, URINE NEGATIVE (negative); PH, URINE 6.5 (5-7)
[2025-04-02] MEDS ORDERED: FLUCONAZOLE150 MG PO (19:52)
[2025-04-02] MEDS ORDERED: FLUCONAZOLE 150 MG TAB PO ONE (20:00)
[2025-04-02 20:07] VITALS: BP 129/99
== END 2025-04-02 20:07 | disposition home or self-care (01) ==
LOC: ED 17:57
PROVIDERS: Internal Medicine
DX: B37.31 Acute candidiasis of vulva and vagina (principal); Z88.0 Allergy status to penicillin; Z88.2 Allergy status to sulfonamides; Z79.899 Other long term (current) drug therapy
CPT/HCPCS: 81003; 84703; 99283